=== PATIENT | female | born 1985 | race Caucasian/White ===

== ENCOUNTER 2020-06-22 21:57 | Emergency (ER) | payer MEDICAID ==
--- NOTE | 2020-06-22 23:00 | ED Physician Documentation ---
PD HPI HEADACHE - Stated complaint Stated Complaint: DAVIDSON,DIZZY - Chief complaint Chief Complaint: Neuro - History obtained from History obtained from: Patient - History of Present Illness Timing - onset: How many days ago (3) Timing - details: Gradual onset Location: Back, Right, Left Quality: Aching Associated symptoms: No: Fever, Stiff neck, Nausea, Vomiting, Weakness, Numbness, Syncope, Seizure, Eye pain, Vision changes Improved by: Nothing Worsened by: Other (no exacerbating factors) Similar symptoms before: Has not had sx before - Additional information Additional information: patient complains of bilateral posterior headache, gradual onset 3 days ago without inciting event. She also has felt lightheadedness and dizziness with this headache, and she says she has had difficulty with mental focus. she has had eight days of a ten day course of she amoxicillin which was prescribed for suspected dental infection.she denies h/o similar headaches. she also notes point tenderness right side of neck x few days Review of Systems Constitutional: reports: Reviewed and negative Eyes: reports: Reviewed and negative Ears: reports: Reviewed and negative Nose: reports: Reviewed and negative Throat: denies: Dental pain / toothache, Sore throat GI: denies: Nausea, Vomiting Skin: denies: Rash Musculoskeletal: denies: Neck pain Neurologic: reports: Headache. denies: Generalized weakness, Focal weakness, Numbness, Head injury PD PAST MEDICAL HISTORY - Past Medical History Past Medical History: No - Present Medications Home Medications: Ambulatory Orders Medication Instructions Recorded Confirmed HYDROcod/ACETAM 5/325 [Royal 5/325] 1 - 2 tablet PO Q6H PRN #10 tablet 06/23/20 - Allergies Allergies/Adverse Reactions: Allergies Allergy/AdvReac Type Severity Reaction Status Date / Time No Known Drug Allergies Allergy Verified 06/22/20 22:11 PD ED PE NORMAL - Vitals Vital signs reviewed: Yes - General General: Alert and oriented X 3, No acute distress, Well developed/nourished - HEENT HEENT: PERRL, EOMI, Moist mucous membranes, Pharynx benign - Neck Neck: Supple, no meningeal sign, Other (solitary sub-centimeter mildly tender lymph node right posterolateral neck) - Cardiac Cardiac: RRR, No murmur - Neuro Neuro: Alert and oriented X 3, 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, No motor deficit, No sensory deficit, Normal speech Eye Opening: Spontaneous Motor: Obeys Commands Verbal: Oriented GCS Score: 15 Results - Vitals Vitals: Vital Signs - 24 hr 06/22/20 06/23/20 22:05 00:17 Temperature 36.3 C L 36.8 C Heart Rate 83 78 Respiratory 16 12 Rate Blood Pressure 135/89 H 104/62 O2 Saturation 100 98 Oxygen O2 Source Room air - Labs Labs: Laboratory Tests 06/22/20 06/22/20 23:50 23:50 WBC 6.6 RBC 4.79 Hgb 12.4 Hct 37.8 MCV 78.9 L MCH 25.9 L MCHC 32.8 RDW 14.8 Plt Count 241 MPV 12.6 H Neut # (Auto) 3.5 Lymph # (Auto) 2.2 [place] # (Auto) 0.6 Eos # (Auto) 0.3 Baso # (Auto) 0.0 Absolute Nucleated RBC 0.00 Nucleated RBC % 0.0 Sodium 139 Potassium 3.8 Chloride 105 Carbon Dioxide 25 Anion Gap 9.0 BUN 14 Creatinine 0.6 Estimated GFR (MDRD) 116 Glucose 99 Calcium 8.7 - Rads (name of study) CT head Radiology: Prelim report reviewed, See rad report PD MEDICAL DECISION MAKING - ED course Complexity details: reviewed results, re-evaluated patient, considered differential, d/w patient ED course: unremarkable blood tests (cbc, bmp) and normal CTH. she is reassured by these findings. she reports partial relief with toradol IM, given vicodin take home pack and rx for same. unclear etiology of her headache; H+P and test results do not suggest emergent pathology such as infection , ICH, intracranial mass, CO exposure. Departure - Departure Disposition: 01 Home, Self Care Clinical Impression: Headache Qualifiers: Headache type: unspecified Headache chronicity pattern: acute headache Intractability: not intractable Qualified Code(s): R51.9 - Headache, unspecified Condition: Good Instructions: ED Cephalgia Unspecified Follow-Up: SOHAIL BARRETT, MSN, [employer] [Credentialed Staff Provider] - Prescriptions: HYDROcod/ACETAM 5/325 [Royal 5/325] 1 - 2 tablet PO Q6H PRN #10 tablet PRN Reason: Pain Comments: Follow up with your primary care provider this week if possible. Discharge Date/Time: 06/23/20 01:43
[2020-06-22] MEDS ORDERED: KETOROLAC 60 MG/2 ML VIAL IM STA (23:32)
[2020-06-22 23:54] LABS: BASOPHILS % (AUTO) 0.6 %; EOSINOPHILS # (AUTO) 0.3 10^3/uL (0.0-0.7); EOSINOPHILS % (AUTO) 3.8 %; HCT - HEMATOCRIT 37.8 % (37.0-47.0); HGB - HEMOGLOBIN 12.4 g/dL (12.0-16.0); LYMPHOCYTES # (AUTO) 2.2 10^3/uL (1.5-3.5); LYMPHOCYTES % (AUTO) 33.7 %; MEAN CORPUSCULAR HEMOGLOBIN 25.9 pg (27.0-31.0); MEAN CORPUSCULAR HGB CONC 32.8 g/dL (32.0-36.0); MEAN CORPUSCULAR VOLUME 78.9 fL (81.0-99.0); MEAN PLATELET VOLUME 12.6 fL (7.9-10.8); MONOCYTES # (AUTO) 0.6 10^3/uL (0.0-1.0); MONOCYTES % (AUTO) 9.1 %; NEUTROPHILS # (AUTO) 3.5 10^3/uL (1.5-6.6); NEUTROPHILS % (AUTO) 52.6 %; PLT - PLATELET COUNT 241 10^3/uL (130-450); RED BLOOD COUNT 4.79 10^6/uL (4.20-5.40); RED CELL DISTRIBUTION WIDTH 14.8 % (12.0-15.0); WHITE BLOOD COUNT 6.6 x10^3/uL (4.8-10.8)
[2020-06-23 00:04] LABS: CALCIUM 8.7 mg/dL (8.5-10.3); CREATININE 0.6 mg/dL (0.4-1.0); POTASSIUM 3.8 mmol/L (3.5-5.0)
[2020-06-23 00:21] VITALS: BP 104/62
[2020-06-23] MEDS ORDERED: HYDROcod/ACET 5/325 Prepack 4 PO STA (01:21)
--- NOTE | 2020-06-23 08:12 | CT Report ---
PROCEDURE: HEAD WO INDICATIONS: headache, dizzy TECHNIQUE: Noncontrast 4.5 mm thick angled axial sections acquired from the foramen magnum to the vertex. For r adiation dose reduction, the following was used: automated exposure control, adjustment of mA and/or kV according to patient size. COMPARISON: None. FINDINGS: Image quality: Excellent. CSF spaces: Basal cisterns are patent. No extra-axial fluid collections. Ventricles are normal in size and shape. Brain: No midline shift. No intracranial masses or hemorrhage. Boudreaux-white matter interface is norm al. Skull and face: Calvarium and visualized facial bones are intact, without suspicious lesions. Sinuses: Visualized sinuses and mastoids are clear. IMPRESSION: No CT evidence of acute intracranial pathology. No discrepancies from preliminary reading. Reviewed by: Wes Moncada MD on 06/23/2020 8:11 AM PDT Approved by: Wes Moncada MD on 06/23/2020 8:11 AM PDT Station ID: [id number]
== END 2020-06-23 01:43 | disposition home or self-care (01) ==
LOC: ED 21:57
DX: R51.9 Headache, unspecified (principal)
CPT/HCPCS: 36415; 80048; 85025; 96372; 99284

== ENCOUNTER 2022-03-13 15:13 | Emergency (ER) | payer MEDICAID, OTHER ==
[2022-03-13 15:54] VITALS: BP 138/65
--- NOTE | 2022-03-13 18:45 | ED Physician Documentation ---
PD HPI UPPER EXT INJURY - Stated complaint Stated Complaint: R FINGER LAC - Chief complaint Chief Complaint: Laceration - History obtained from History obtained from: Patient - History of Present Illness Location: Right, Finger (index) Type of injury: Laceration (She accidentally cut her finger with a piece of broken glass while washing glass. Lac with brisk bleeding. She denies feeling of foreign body. She bandaged it quickly and came to the ER.) Where injury occurred: Home Timing - onset: Today Review of Systems Skin: reports: Laceration (s) Neurologic: denies: Focal weakness, Numbness PD PAST MEDICAL HISTORY - Past Medical History Past Medical History: No - Past Surgical History Past Surgical History: Yes /SUBCONTRACT MANAGER: section - Present Medications Home Medications: Ambulatory Orders Medication Instructions Recorded Confirmed HYDROcod/ACETAM 5/325 [Dana 5/325] 1 - 2 tablet PO Q6H PRN #10 tablet 06/23/20 - Allergies Allergies/Adverse Reactions: Allergies Allergy/AdvReac Type Severity Reaction Status Date / Time No Known Drug Allergies Allergy Verified 06/22/20 22:11 - Social History Does the pt smoke?: No Smoking Status: Never smoker Does the pt drink ETOH?: No Does the pt have substance abuse?: No - Immunizations Immunizations are current?: Yes PD ED PE NORMAL - Vitals Vital signs reviewed: Yes - General General: Alert and oriented X 3, No acute distress, Well developed/nourished - Derm Derm: Normal color, Warm and dry - Extremities Extremities: Other (right index finger distal phalanx palmar side with flap lac 2 cm, not involving nailbed and no fb. oosing of blood from lac when pressure bandage removed. ) - Neuro Neuro: No motor deficit, No sensory deficit Results - Vitals Vitals: Oxygen O2 Source Room air Procedures - Laceration (location) right index finger distal phalanx Length in cm: 2 Wound type: Flap, Into subcut fat, Clean Neurovascular status: Sensory intact, Motor intact, Vascular intact Tendon involvement: Tendon intact Anesthesia: Lidocaine 1% with epi Wound preparation: Wound explored, To the base Skin layer closure: Nylon, Interrupted, Running, Size #-0 - enter number (5), Sutures - enter # (7) Other: Patient tolerated well, No complications, Neurovascular intact, Tetanus booster given PD Medical Decision Making - ED course Complexity details: considered differential, d/w patient Departure - Departure Disposition: 01 Home, Self Care Clinical Impression: Finger laceration Qualifiers: Encounter type: initial encounter Finger: index finger Damage to nail status: without damage Foreign body presence: without foreign body Laterality: right Qualified Code(s): S61.210A - Laceration without foreign body of right index finger without damage to nail, initial encounter Condition: Stable Record reviewed to determine appropriate education?: Yes Instructions: ED Laceration Hand Comments: It is okay to wash and shower. Clean off the wound twice a day with soap and water, or peroxide and water. Apply some antibiotic ointment to it to keep it moist. Also to watch for signs of infection such as purulence, redness or increasing pain. Return to your primary care or the ER at the specified time for suture removal. Suture removal 8 to 10 days. Activity as tolerated based on comfort. However I would be fairly light with activity for the first 2 or 3 days to allow it to seal up a bit. He can keep it uncovered part of the time. Cover with Band-Aid when it needs protecting from the environment. Tylenol or ibuprofen if needed for pain. You were given a tetanus booster today. Discharge Date/Time: 03/13/22 19:22
[2022-03-13] MEDS ORDERED: BACITRACIN ZINC OINT 1 PACKET TOP STA (19:06)
[2022-03-13] MEDS ORDERED: IBUPROFEN 600 MG TABLET PO STA (19:06)
[2022-03-13] MEDS ORDERED: TETANUS/DIPHTHERIA/PERTUSSIS 0.5 ML SYRINGE IM ONE (19:06)
== END 2022-03-13 19:22 | disposition home or self-care (01) ==
LOC: ED 15:13
DX: S61.210A Laceration without foreign body of right index finger without damage to nail, initial encounter (principal); W25.XXXA Contact with sharp glass, initial encounter; Y93.G1 Activity, food preparation and clean up; Y92.009 Unspecified place in unspecified non-institutional (private) residence as the place of occurrence of the external cause; Z23 Encounter for immunization
CPT/HCPCS: 12001; 90471; 90715; 99283; A9270